=== PATIENT | female | born 1960 | race Caucasian/White ===

== ENCOUNTER 2019-11-08 08:40 | Outpatient (CLI) | payer OTHER, SELFPAY ==
--- NOTE | ~2019-11-08 | CT_ITS ---
EXAMINATION:CT chest wo con DATE: 11/08/2019 09:09 INDICATION: Other nonspecific abnormal finding of lung field. TECHNIQUE: Computed tomography (CT) of the chest was performed without intravenous contrast. Automate d exposure control and iterative reconstruction technique were employed. The dose-length product (DLP ) was 141.06 mGy-cm. COMPARISON: Chest CT 12/22/2018 FINDINGS: There is moderate emphysema. There is mild scarring at the lung apices. There is mild atele ctasis in the inferior lungs. There is mucous plugging and mild bronchiectasis in right middle lobe. There are chronic mild airspace and groundglass opacities in right middle lobe with volume loss, cons istent with scarring a calcified right lung nodule and calcified right hilar lymph nodes are consiste nt with old granulomatous disease. No pleural effusion. The heart size is normal. There are coronary artery calcifications. No pericardial effusion. There is mild thoracic spondylosis. IMPRESSION: 1. Mild scarring in right middle lobe and at the lung apices. 2. Moderate emphysema. Reviewed, dictated and finalized at location B.
== END 2019-11-08 08:41 | disposition home or self-care (01) ==
LOC: ANHIMG 08:46
PROVIDERS: PCP Family Medicine; Visit Provider Internal Medicine Critical Care Medicine
DX: R91.8 Other nonspecific abnormal finding of lung field (principal); J43.9 Emphysema, unspecified
CPT/HCPCS: 71250

== ENCOUNTER 2020-05-27 08:05 | Outpatient (CLI) | payer OTHER, SELFPAY ==
--- NOTE | 2020-05-27 12:56 | WPDPFTINT ---
PFT Interpretation This is a pulmonary function test with pre and post-bronchodilator spirometry, plethysmography and diffusing capacity. The test was performed and results interpreted in accordance with the 2019 and 2005 ATS/ERS Task Force guidelines respectively using the Global Lung Function Initiative-2012 reference equations. Findings: Spirometry: there is decreased maximal expiratory airflow at all lung volumes with a concave expiratory flow tracing. The pre bronchodilator FVC is 1.64, 60% predicted. The pre bronchodilator FEV1 is 0.60 L, 27% predicted. The FEV1: FVC ratio is 36%. The post bronchodilator FVC is 2.04 L, representing a 24% increase. The post bronchodilator FEV1 is 0.74 L, representing a 24% increase. Plethysmography: The total lung capacity is 6.07 L, 137% predicted. The functional residual capacity is 5.04 L, 204% predicted. The residual volume is 4.42 L, 251% predicted. Diffusing capacity: The absolute diffusion capacity is 9.9, 49% predicted. The diffusing capacity corrected for alveolar volume is 2.94, 63% predicted. Impression: There is a very severe obstructive abnormality with significant improvement after inhaling a single dose of albuterol. The increase in residual volume is consistent with air trapping from an obstructive abnormality. Hyperinflation is present is demonstrated by the increase in functional residual capacity and total lung capacity and is consistent with an obstructive abnormality. The absolute diffusing capacity is moderately decreased but normalizes when corrected for alveolar volume. Impression: There is a mild restrictive ventilatory abnormality. The spirometry is normal without evidence of an obstructive abnormality. The absolute diffusing capacity is moderately decreased and remains mildly decreased when corrected for alveolar volume. There are no prior studies for comparison
--- NOTE | 2020-05-27 12:59 | WPDSIXMINUTE ---
Six Minute Walk This is a 6 minutes walk test. The test was performed and interpreted in accordance with the 2014 ERS/ATS task force guidelines. Findings: The patient's resting room air oxygen saturation measured by pulse oximetry was 95% and her heart rate was 94 bpm. Patient ambulated for 305 meters and oxygen saturation remained 90% to 94%. Heart rate at the end of the study was 103 bpm. There are no prior studies for comparison.
== END 2020-05-27 08:06 | disposition home or self-care (01) ==
PROVIDERS: PCP Family Medicine; Visit Provider Nurse Practitioner Family
DX: J44.9 Chronic obstructive pulmonary disease, unspecified (principal); R94.2 Abnormal results of pulmonary function studies
CPT/HCPCS: 94060; 94618; 94726; 94729

== ENCOUNTER 2021-02-13 09:55 | Outpatient (CLI) | payer OTHER, SELFPAY ==
--- NOTE | ~2021-02-13 | CT_ITS ---
EXAMINATION: CT lung screening EXAM DATE: 02/13/2021 10:11 INDICATION: Personal hx of nicotine dependence. COPD and emphysema. Shortness of breath and cough. TECHNIQUE: Spiral low dose CT of the chest without contrast. Axial, coronal and sagittal images were reviewed. The dose-length product (DLP) for this examination was 61.43 mGy-cm. The exposure was ta ilored according to patient size (auto mA exposure control), and iterative reconstruction (ASIR) was used as additional dose reduction technique. Comparison is made to prior examination from 11/08/2019. FINDINGS: Right middle lobe subsegmental atelectasis/scarring unchanged. Small apical scarring. The lungs are otherwise clear. Trace pericardial effusion. Tracheobronchial tree is patent. There is no mediastinal, hilar or axillary lymphadenopathy. There is no pneumothorax. Heart normal in siz e. There is mild coronary arterial calcification, arterial sclerosis. Upper abdomen is unremarkabl e. No osteoblastic or osteolytic lesions identified. IMPRESSION: Lung-RADS category 2, benign appearance or behavior (<1% chance of malignancy); recommend continued LDCT screening in 1 year. Reviewed, dictated and finalized at location B. PREVENTION OFFICER
== END 2021-02-13 09:56 | disposition home or self-care (01) ==
LOC: ANHIMG 09:58
PROVIDERS: PCP Family Medicine; Visit Provider Physician Assistant
DX: Z12.2 Encounter for screening for malignant neoplasm of respiratory organs (principal); Z87.891 Personal history of nicotine dependence
CPT/HCPCS: 71271